=== PATIENT | male | born 1945 | race Caucasian/White ===

== ENCOUNTER → 2017-06-13 | Outpatient (CLI) | payer MEDICARE, OTHER ==
[~2017-06-13] MED LIST: "\\\"ANTIBIOTIC\\\"" PO; ASPIRIN325 MG PO; ASPRIN/BUTALBIT1 TAB; CIPROFLOXACIN500 MG PO; DIABETA5 MG PO; DILTIAZEM120 MG PO; ENALAPRIL10 MG PO; LASIX20 MG PO; LIQUID MAGNESI400 MG PO; LOPRESSOR50 MG PO; MAG-OX 400400 MG PO; METFORMIN HCL1000 MG PO; PLAVIX75 MG PO; SIMVASTATIN20 MG PO; VICODIN 5/500 505 MG PO
== END | disposition home or self-care (01) ==
LOC: RAD 09:12
DX: R06.02 Shortness of breath (principal); E11.9 Type 2 diabetes mellitus without complications; I10 Essential (primary) hypertension; Z86.711 Personal history of pulmonary embolism

== ENCOUNTER 2017-08-31 19:31 | Emergency (ER) | payer MEDICARE, OTHER ==
[~2017-08-31] VITALS: Ht 182.8 cm; Wt 109.8 kg
[2017-08-31 19:38] VITALS: BP 146/99
[2017-08-31] MEDS ORDERED: MEDROL DOSEPAK4 MG PO (20:26)
== END 2017-08-31 20:50 | disposition home or self-care (01) ==
LOC: ED 19:31
DX: M54.12 Radiculopathy, cervical region (principal)

== ENCOUNTER → 2017-11-23 | Outpatient (CLI) | payer MEDICARE, OTHER ==
[~2017-11-23] MED LIST changes: +MEDROL DOSEPAK4 MG PO
== END ==
LOC: CARD 10:11 → LAB 10:11
DX: M25.511 Pain in right shoulder (principal); I10 Essential (primary) hypertension; R94.31 Abnormal electrocardiogram [ECG] [EKG]

== ENCOUNTER → 2019-02-28 | Outpatient (CLI) | payer MEDICARE ==
[~2019-02-28] MED LIST changes: +GLUCOTROL5 MG PO; +PRECOSE100 MG PO; +XARE20MG PO
--- NOTE | ~2019-02-28 | ST ---
[place], [place] EXERCISE STRESS TEST REPORT NAME[id number] UNIT #: [id number] ROOM: DOCTOR: EZIO PRASAD MD BIRTHDATE: [birth year] DOS: 02/28/2019 EXERCISE CARDIOLITE STRESS TEST REASON FOR TESTING: Exertional dyspnea. FINDINGS: Baseline EKG, atrial fibrillation with a controlled rate. Abnormal EKG. PROCEDURE: After informed consent, the patient walked for 3 minutes 40 seconds on a full Olivier protocol stress test and stopped for dyspnea. He achieved a maximum heart rate of 157, which is equivalent to 107% of maximum predicted heart rate at a workload of 5 METs. There were no EKG changes on the exercise EKG. The patient experienced dyspnea and no chest pain. [place] treadmill score was 4 consistent with intermediate risk of cardiovascular events. Isotope was injected 1 minute prior to completion of exercise. Please see the separate imaging report for further details of the stress test results. Ezio Prasad MD CM:STRESS:EXERCISE STRESS TEST REPORT [id number] EZIO PRASAD MD
--- NOTE | 2019-02-28 10:00 | NUR ---
INFORMED CONSENT OBTAINED FOR EXERCISE CARDIOLITE STRESS TEST WITH DR. PRASAD. RESTING EKG A-FIB WITH A SUPINE HR OF 89 WITH BP OF 104/82 AND HR OF 96 WITH BP OF 110/78 IN STANDING POSITION. PRE EXERCISE SP02 OF 100%. PT COMPLETED 3:42 OF A ILIR PROTOCOL WITH COMPLETION OF 42 SECONDS OF STAGE II AT 2.5 MPH AND 12% GRADE. REACHED A PEAK HR OF 157 WHICH IS 107% OF PREDICTED MAX AND A PEAK BP OF 150/78. HAD NO CHEST PAIN OR ANY ST CHANGES. REMAINED IN A-FIB AND HAD AN EXERCISE SPO2 OF 94%. TEST TERMINATED BECAUSE OF FATIGUE AND SHORTNESS OF BREATH. HAS A FAIR EXERCISE TOLERANCE. LAST RECOVERY HR OF 102 WITH BP OF 124/78. TO NUCLEAR MEDICINE IN STABLE CONDITION FOR SCANNING.
== END | disposition home or self-care (01) ==
LOC: CARD 01:24
DX: R06.02 Shortness of breath (principal); I48.91 Unspecified atrial fibrillation; R94.31 Abnormal electrocardiogram [ECG] [EKG]

== ENCOUNTER → 2021-03-03 | Outpatient (CLI) | payer MEDICARE, OTHER ==
[~2021-03-03] MED LIST changes: +TOUJEO SOL300 UNIT/1 SQ; +TRULICITY1.5 MG/0.5 SC; +ZOCOR40 MG PO
== END | disposition home or self-care (01) ==
LOC: CARD 00:15
PROVIDERS: ATTEND Internal Medicine Cardiovascular Disease
DX: I48.91 Unspecified atrial fibrillation (principal)

== ENCOUNTER 2021-04-27 10:57 | Emergency (ER) | payer MEDICARE, OTHER ==
[~2021-04-27] VITALS: Ht 182.8 cm; Wt 117.9 kg
[2021-04-27 11:18] VITALS: BP 142/88
[2021-04-27 11:53] LABS: BASO % 0.2 % (0.0-1.0); EOS # 0.1 10*3/uL (0.0-0.4); EOS % 0.9 % (1.0-4.0); HEMATOCRIT 50.9 % (42.0-52.0); LYMPH # 1.4 10*3/uL (1.3-4.4); LYMPH % 14.2 % (27.0-41.0); MEAN CELL VOLUME 88.1 fl (80.0-94.0); MEAN CORPUSCULAR HGB 29.1 pg (27.0-31.0); MEAN PLATELET VOLUME 9.5 fl (9.6-12.3); MONO # 0.7 10*3/uL (0.1-1.0); MONO % 7.1 % (3.0-9.0); NEUT # 7.5 10*3/uL (2.3-7.9); NEUT % 77.2 % (47.0-73.0); PLATELET COUNT AUTOMATED 147 10*3/uL (130-400); RED BLOOD COUNT 5.78 10*6/uL (4.50-5.90); WHITE BLOOD COUNT 9.7 10*3/uL (4.8-10.8)
[2021-04-27 12:07] LABS: ALBUMIN 3.1 gm/dl (3.1-4.5); CREATININE 1.5 mg/dL (0.70-1.30); TOTAL PROTEIN 6.8 gm/dL (6.4-8.2)
[2021-04-27 12:08] LABS: URIC ACID 5.6 mg/dL (3.5-7.2)
[2021-04-27] MEDS ORDERED: CEPHALEXIN500 M1 PO (12:43)
[2021-04-27] MEDS ORDERED: SEPTDS PO (12:43)
== END 2021-04-27 13:09 | disposition home or self-care (01) ==
LOC: ED 10:57
PROVIDERS: Physician Assistant
DX: S91.105A Unspecified open wound of left lesser toe(s) without damage to nail, initial encounter (principal); Z79.899 Other long term (current) drug therapy; Z98.890 Other specified postprocedural states; X58.XXXA Exposure to other specified factors, initial encounter; Y93.89 Activity, other specified; Y92.89 Other specified places as the place of occurrence of the external cause; Y99.8 Other external cause status

== ENCOUNTER → 2021-05-18 | Outpatient (CLI) | payer MEDICARE, OTHER ==
[~2021-05-18] MED LIST changes: +CEPHALEXIN500 M1 PO; +SEPTDS PO
== END ==
LOC: WOUNDCARE 09:53
PROVIDERS: ATTEND Nurse Practitioner
DX: E11.621 Type 2 diabetes mellitus with foot ulcer (principal); L97.522 Non-pressure chronic ulcer of other part of left foot with fat layer exposed; I10 Essential (primary) hypertension; I48.91 Unspecified atrial fibrillation; I25.10 Atherosclerotic heart disease of native coronary artery without angina pectoris; Z98.890 Other specified postprocedural states; Z87.442 Personal history of urinary calculi; Z79.899 Other long term (current) drug therapy; Z79.4 Long term (current) use of insulin

== ENCOUNTER → 2021-05-25 | Outpatient (CLI) | payer MEDICARE, OTHER | LOC: WOUNDCARE 01:11 | PROVIDERS: ATTEND Nurse Practitioner | DX: E11.621 Type 2 diabetes mellitus with foot ulcer (principal); L97.522 Non-pressure chronic ulcer of other part of left foot with fat layer exposed; I10 Essential (primary) hypertension; I25.10 Atherosclerotic heart disease of native coronary artery without angina pectoris; I48.91 Unspecified atrial fibrillation; Z87.442 Personal history of urinary calculi ==

== ENCOUNTER → 2021-06-08 | Outpatient (CLI) | payer MEDICARE, OTHER | LOC: WOUNDCARE 01:27 | PROVIDERS: ATTEND Nurse Practitioner | DX: E11.621 Type 2 diabetes mellitus with foot ulcer (principal); L97.528 Non-pressure chronic ulcer of other part of left foot with other specified severity; I10 Essential (primary) hypertension; I25.10 Atherosclerotic heart disease of native coronary artery without angina pectoris; I48.91 Unspecified atrial fibrillation; Z87.442 Personal history of urinary calculi ==

== ENCOUNTER 2022-07-10 01:11 | Emergency (ER) | payer OTHER ==
[~2022-07-10] VITALS: Ht 180.3 cm; Wt 127.1 kg
[2022-07-10 01:37] LABS: BASO % 0.2 % (0.0-1.0); EOS # 0.2 10*3/uL (0.0-0.4); EOS % 2.3 % (1.0-4.0); HEMATOCRIT 53.3 % (42.0-52.0); LYMPH # 1.9 10*3/uL (1.3-4.4); LYMPH % 22.2 % (27.0-41.0); MEAN CELL VOLUME 91.6 fl (80.0-94.0); MEAN CORPUSCULAR HGB 29.2 pg (27.0-31.0); MEAN CORPUSCULAR HGB CONC 31.9 g/dl (33.0-37.0); MONO # 0.9 10*3/uL (0.1-1.0); MONO % 10.4 % (3.0-9.0); NEUT # 5.4 10*3/uL (2.3-7.9); NEUT % 64.7 % (47.0-73.0); PLATELET COUNT AUTOMATED 165 10*3/uL (130-400); RED BLOOD COUNT 5.82 10*6/uL (4.50-5.90); WHITE BLOOD COUNT 8.4 10*3/uL (4.8-10.8)
[2022-07-10 01:52] LABS: INTERNATIONAL NORM RATIO 1.1 (2.0-3.5)
[2022-07-10 01:53] LABS: CREATININE 1.53 mg/dL (0.70-1.30); POTASSIUM 4.8 mmol/L (3.5-5.1); TOTAL PROTEIN 7.2 gm/dL (6.4-8.2)
[2022-07-10 03:15] VITALS: BP 117/82
== END 2022-07-10 03:55 | disposition left against medical advice (07) ==
LOC: ED 01:11
PROVIDERS: Emergency Medicine
DX: R07.9 Chest pain, unspecified (principal); Z79.899 Other long term (current) drug therapy; Z90.49 Acquired absence of other specified parts of digestive tract

== ENCOUNTER 2022-11-25 14:40 | Emergency (ER) | payer MEDICARE ==
[~2022-11-25] VITALS: Wt 120.2 kg
[2022-11-25 14:41] VITALS: BP 144/94
[2022-11-25 15:34] LABS: INTERNATIONAL NORM RATIO 1.4 (2.0-3.5)
[2022-11-25 15:40] LABS: POTASSIUM 4.1 mmol/L (3.4-5.1); TOTAL PROTEIN 6.3 gm/dL (6.0-8.0)
[2022-11-25 16:16] LABS: BASO % 0.2 % (0.0-1.0); EOS # 0.1 10*3/uL (0.0-0.4); EOS % 1.6 % (1.0-4.0); LYMPH # 1.4 10*3/uL (1.3-4.4); LYMPH % 17.4 % (27.0-41.0); MEAN CELL VOLUME 90.9 fl (80.0-94.0); MEAN CORPUSCULAR HGB 29.6 pg (27.0-31.0); MEAN CORPUSCULAR HGB CONC 32.6 g/dl (33.0-37.0); MEAN PLATELET VOLUME 10.6 fl (9.6-12.3); MONO # 0.5 10*3/uL (0.1-1.0); MONO % 6.6 % (3.0-9.0); NEUT # 5.9 10*3/uL (2.3-7.9); NEUT % 73.8 % (47.0-73.0); PLATELET COUNT AUTOMATED 121 10*3/uL (130-400); RED BLOOD COUNT 5.94 10*6/uL (4.50-5.90); RED CELL DISTRI WIDTH 13.9 % (0-14.5)
== END 2022-11-25 17:56 | disposition home or self-care (01) ==
LOC: ED 14:40
PROVIDERS: Emergency Medicine
DX: M25.512 Pain in left shoulder (principal); Z79.899 Other long term (current) drug therapy; Z90.49 Acquired absence of other specified parts of digestive tract; W18.39XA Other fall on same level, initial encounter; Y93.89 Activity, other specified; Y92.89 Other specified places as the place of occurrence of the external cause; Y99.8 Other external cause status

== ENCOUNTER 2024-07-20 19:20 | Emergency (ER) | payer MEDICARE ==
[~2024-07-20] VITALS: Ht 180.3 cm; Wt 117.9 kg
[2024-07-20 19:20] VITALS: BP 112/72
[2024-07-20] MEDS ORDERED: Acetaminophen/Hydrocodone 5 MG/325 MG TABLET PO ONE (19:55)
[2024-07-20] MEDS ORDERED: CYCLOBENZAPRINE10 MG PO (21:21)
== END 2024-07-20 21:32 | disposition home or self-care (01) ==
LOC: ED 19:20
DX: S83.92XA Sprain of unspecified site of left knee, initial encounter (principal); I48.91 Unspecified atrial fibrillation; I10 Essential (primary) hypertension; E11.9 Type 2 diabetes mellitus without complications; E78.00 Pure hypercholesterolemia, unspecified; Z87.442 Personal history of urinary calculi; Z90.49 Acquired absence of other specified parts of digestive tract; Z98.890 Other specified postprocedural states; W01.0XXA Fall on same level from slipping, tripping and stumbling without subsequent striking against object, initial encounter; Y93.E1 Activity, personal bathing and showering; Y92.89 Other specified places as the place of occurrence of the external cause; Y99.8 Other external cause status

== ENCOUNTER → 2024-08-09 | Outpatient (CLI) | payer MEDICARE ==
[~2024-08-09] MED LIST changes: +CYCLOBENZAPRINE10 MG PO
== END | disposition home or self-care (01) ==
LOC: MRI 02:17
PROVIDERS: ATTEND Orthopaedic Surgery
DX: S83.242A Other tear of medial meniscus, current injury, left knee, initial encounter (principal); S83.282A Other tear of lateral meniscus, current injury, left knee, initial encounter; M25.462 Effusion, left knee; M79.89 Other specified soft tissue disorders; M70.52 Other bursitis of knee, left knee; X58.XXXA Exposure to other specified factors, initial encounter; Y93.89 Activity, other specified; Y92.89 Other specified places as the place of occurrence of the external cause; Y99.8 Other external cause status

== ENCOUNTER → 2024-09-04 | Day surgery (SDC) | payer MEDICARE ==
[2024-08-30 09:30] LABS: BASO % 0.4 % (0.0-1.0); EOS # 0.2 10*3/uL (0.0-0.4); EOS % 3.1 % (1.0-4.0); HEMATOCRIT 52.2 % (42.0-52.0); LYMPH # 1.8 10*3/uL (1.3-4.4); LYMPH % 25.7 % (27.0-41.0); MEAN CELL VOLUME 93.4 fl (80.0-94.0); MEAN CORPUSCULAR HGB 29.7 pg (27.0-31.0); MEAN CORPUSCULAR HGB CONC 31.8 g/dl (33.0-37.0); MEAN PLATELET VOLUME 9.9 fl (9.6-12.3); MONO # 0.7 10*3/uL (0.1-1.0); MONO % 9.4 % (3.0-9.0); NEUT # 4.3 10*3/uL (2.3-7.9); NEUT % 61.3 % (47.0-73.0); PLATELET COUNT AUTOMATED 141 10*3/uL (130-400); RED BLOOD COUNT 5.59 10*6/uL (4.50-5.90); RED CELL DISTRI WIDTH 12.8 % (0-14.5); WHITE BLOOD COUNT 7.1 10*3/uL (4.8-10.8)
[2024-08-30 09:51] LABS: POTASSIUM 4.3 mmol/L (3.4-5.1)
[2024-08-30 09:52] LABS: ACT PARTIAL THROMBO TIME 28.9 SECONDS (20.0-32.1)
[~2024-09-04] VITALS: Ht 182.8 cm; Wt 117.9 kg
== END | disposition home or self-care (01) ==
LOC: SDC 08-31 10:15
PROVIDERS: ATTEND Orthopaedic Surgery
DX: M17.12 Unilateral primary osteoarthritis, left knee (principal); Z53.8 Procedure and treatment not carried out for other reasons; I10 Essential (primary) hypertension; E11.9 Type 2 diabetes mellitus without complications; I48.91 Unspecified atrial fibrillation; E78.00 Pure hypercholesterolemia, unspecified; G47.30 Sleep apnea, unspecified; K92.1 Melena; Z87.442 Personal history of urinary calculi; Z83.3 Family history of diabetes mellitus; Z82.49 Family history of ischemic heart disease and other diseases of the circulatory system

== ENCOUNTER → 2025-06-14 | Outpatient (CLI) | payer OTHER ==
[~2025-06-14] MED LIST changes: +DILTIAZEM 24HR180 MG PO; +FARXIGA10 M1 PO; +HYDROCODONE-AC1 EAC1 PO; +ROSUVASTATIN CA20 MG PO
== END | disposition home or self-care (01) ==
LOC: CT 13:56
PROVIDERS: ATTEND Urology
DX: N13.30 Unspecified hydronephrosis (principal); N40.0 Benign prostatic hyperplasia without lower urinary tract symptoms; R31.9 Hematuria, unspecified

== ENCOUNTER 2025-06-19 23:19 | Inpatient (IN) | payer OTHER ==
[~2025-06-19] VITALS: Ht 182.9 cm; Wt 114.3 kg
[~2025-06-19 23:19] MED LIST changes: -DILTIAZEM 24HR180 MG PO; -FARXIGA10 M1 PO; -HYDROCODONE-AC1 EAC1 PO; -ROSUVASTATIN CA20 MG PO
[2025-06-20] VITALS (8 sets, daily range): BP systolic 98–136; BP diastolic 51–82
[2025-06-20 01:02] LABS: BASO # 0.0 10*3/uL (0.0-0.1); BASO % 0.2 % (0.0-1.0); EOS # 0.2 10*3/uL (0.0-0.4); EOS % 1.6 % (1.0-4.0); MEAN CELL VOLUME 89.7 fl (80.0-94.0); MEAN CORPUSCULAR HGB 29.1 pg (27.0-31.0); MEAN PLATELET VOLUME 10.2 fl (9.6-12.3); MONO # 1.1 10*3/uL (0.1-1.0); MONO % 9.1 % (3.0-9.0); NEUT # 9.7 10*3/uL (2.3-7.9); NEUT % 77.1 % (47.0-73.0); NUCLEATED RED BLOOD CELL 0.0 % (0.0-0.0); NUCLEATED RED BLOOD CELL 0.0 10*3/uL (0.0-0.0); PLATELET COUNT AUTOMATED 125 10*3/uL (130-400); RED CELL DISTRI WIDTH 13.1 % (0-14.5)
[2025-06-20 01:26] LABS: BUN 33.0 mg/dl (9-23); SGPT/ALT 16.0 U/L (5-49)
[2025-06-20] MEDS ORDERED: SODIUM CHLORIDE 0.9% 1,000 ML IV ONE ×2 (02:50→17:20)
[2025-06-20] MEDS ORDERED: INSULIN REGULAR, HUMAN 1 UNIT/0.01 ML IV ONE (03:00)
[2025-06-20 03:44] LABS: BILIRUBIN Negative (Negative); BLOOD 2+ (Negative); CLARITY Turbid (Clear); COLOR Yellow (Yellow); KETONE Negative (Negative); LEUKO ESTERASE Trace (Negative); NITRITE Negative (Negative); PH 6.0 (4.5-8.0); SPECIFIC GRAVITY 1.015 (1.001-1.030); UROBILINOGEN 0.2 E.U./dl (0.0-1.0)
[2025-06-20 03:49] LABS: EPITHELIAL CELLS 41-50
[2025-06-20 03:50] LABS: YEAST 1+
[2025-06-20 03:51] LABS: BACTERIA 2+; RBC 16-20 rbc/hpf (0-2); WBC 16-20 wbc/hpf (0-5)
[2025-06-20] MEDS ORDERED: ACETAMINOPHEN 325 MG TAB PO PRN (05:40)
[2025-06-20] MEDS ORDERED: TEMAZEPAM 15 MG CAP PO PRN (05:40)
[2025-06-20] MEDS ORDERED: ACETAMINOPHEN 650 MG SUPP R PRN (05:40)
[2025-06-20] MEDS ORDERED: BISACODYL 10 MG SUPP R PRN (05:40)
[2025-06-20] MEDS ORDERED: BISACODYL 5 MG TAB PO PRN (05:40)
[2025-06-20] MEDS ORDERED: Acetaminophen/Hydrocodone 5 MG/325 MG TABLET PO PRN (05:40)
[2025-06-20] MEDS ORDERED: Ondansetron Hydrochloride 4 MG/2 ML VIAL IV PRN (05:40)
[2025-06-20] MEDS ORDERED: SODIUM CHLORIDE 0.9% 1,000 ML IV SCH (05:50)
[2025-06-20] MEDS ORDERED: DEXTROSE 50% 25 GM/50 ML VIAL IV PRN (05:50)
[2025-06-20] MEDS ORDERED: ROSUVASTATIN CA20 MG PO (05:54)
[2025-06-20] MEDS ORDERED: INSULIN LISPRO 1 UNIT/0.01 ML SQ SCH (07:30)
[2025-06-20] MEDS ORDERED: RIVAROXABAN 15 MG TAB PO SCH (10:00)
[2025-06-20 19:58] LABS: BASO # 0.0 10*3/uL (0.0-0.1); BASO % 0.2 % (0.0-1.0); EOS # 0.2 10*3/uL (0.0-0.4); EOS % 1.4 % (1.0-4.0); MEAN CELL VOLUME 91.0 fl (80.0-94.0); MEAN CORPUSCULAR HGB 29.4 pg (27.0-31.0); MEAN PLATELET VOLUME 10.3 fl (9.6-12.3); MONO # 1.1 10*3/uL (0.1-1.0); MONO % 8.5 % (3.0-9.0); NEUT # 10.2 10*3/uL (2.3-7.9); NEUT % 77.4 % (47.0-73.0); NUCLEATED RED BLOOD CELL 0.0 % (0.0-0.0); NUCLEATED RED BLOOD CELL 0.0 10*3/uL (0.0-0.0); PLATELET COUNT AUTOMATED 130 10*3/uL (130-400); RED CELL DISTRI WIDTH 13.2 % (0-14.5)
[2025-06-20 20:10] LABS: BUN 31.0 mg/dl (9-23)
[2025-06-21] VITALS: BP 94/61
[2025-06-21 06:30] VITALS: BP 108/78
[2025-06-21 06:35] LABS: BASO # 0.0 10*3/uL (0.0-0.1); BASO % 0.1 % (0.0-1.0); EOS # 0.2 10*3/uL (0.0-0.4); EOS % 1.6 % (1.0-4.0); MEAN CELL VOLUME 92.0 fl (80.0-94.0); MEAN CORPUSCULAR HGB 28.8 pg (27.0-31.0); MEAN PLATELET VOLUME 10.4 fl (9.6-12.3); MONO # 1.1 10*3/uL (0.1-1.0); MONO % 8.3 % (3.0-9.0); NEUT # 10.5 10*3/uL (2.3-7.9); NEUT % 77.8 % (47.0-73.0); NUCLEATED RED BLOOD CELL 0.0 % (0.0-0.0); NUCLEATED RED BLOOD CELL 0.0 10*3/uL (0.0-0.0); PLATELET COUNT AUTOMATED 146 10*3/uL (130-400); RED CELL DISTRI WIDTH 13.2 % (0-14.5)
[2025-06-21 07:01] LABS: BUN 31.0 mg/dl (9-23); SGPT/ALT 11.0 U/L (5-49)
[2025-06-21 07:38] LABS: LDL CHOLESTEROL 78.0 mg/dL (9-159)
[2025-06-21 08:00] VITALS: BP 103/58
[2025-06-21] MEDS ORDERED: SODIUM CHLORIDE 0.9% 1,000 ML IV ONE (08:20)
[2025-06-21] MEDS ORDERED: SODIUM POLYSTYRENE SULFONATE 15 GM/60 ML BOT PO ONE (08:20)
[2025-06-21] MEDS ORDERED: LISINOPRIL 20 MG TAB PO SCH (10:00)
[2025-06-21] MEDS ORDERED: ATORVASTATIN CALCIUM 20 MG TAB PO SCH (10:00)
[2025-06-21 12:00] VITALS: BP 109/90
[2025-06-21 16:00] VITALS: BP 128/74
[2025-06-21] MEDS ORDERED: Lidocaine Hydrochloride 3% 30 GM CREAM T SCH ×2 (16:00→18:00)
[2025-06-21 20:00] VITALS: BP 99/57
[2025-06-21 20:18] LABS: BUN 32.0 mg/dl (9-23)
[2025-06-22] VITALS: BP 103/67
[2025-06-22 05:19] LABS: BUN 27.0 mg/dl (9-23)
[2025-06-22 06:03] LABS: BASO # 0.0 10*3/uL (0.0-0.1); BASO % 0.2 % (0.0-1.0); EOS # 0.3 10*3/uL (0.0-0.4); EOS % 2.2 % (1.0-4.0); MEAN CELL VOLUME 89.8 fl (80.0-94.0); MEAN CORPUSCULAR HGB 29.2 pg (27.0-31.0); MEAN PLATELET VOLUME 9.6 fl (9.6-12.3); MONO # 1.2 10*3/uL (0.1-1.0); MONO % 9.3 % (3.0-9.0); NEUT # 9.5 10*3/uL (2.3-7.9); NEUT % 75.8 % (47.0-73.0); NUCLEATED RED BLOOD CELL 0.0 % (0.0-0.0); NUCLEATED RED BLOOD CELL 0.0 10*3/uL (0.0-0.0); PLATELET COUNT AUTOMATED 155 10*3/uL (130-400); RED CELL DISTRI WIDTH 13.2 % (0-14.5)
[2025-06-22 08:00] VITALS: BP 104/70
[2025-06-22 10:00] VITALS: BP 102/62
[2025-06-22 12:00] VITALS: BP 123/76
[2025-06-22 16:00] VITALS: BP 102/46
[2025-06-22 20:00] VITALS: BP 106/57
[2025-06-23] VITALS: BP 106/57
[2025-06-23 05:25] LABS: BUN 25.0 mg/dl (9-23)
[2025-06-23 06:10] LABS: BASO # 0.0 10*3/uL (0.0-0.1); BASO % 0.3 % (0.0-1.0); EOS # 0.4 10*3/uL (0.0-0.4); EOS % 2.9 % (1.0-4.0); MEAN CELL VOLUME 90.6 fl (80.0-94.0); MEAN CORPUSCULAR HGB 29.3 pg (27.0-31.0); MEAN PLATELET VOLUME 9.8 fl (9.6-12.3); MONO # 1.2 10*3/uL (0.1-1.0); MONO % 9.7 % (3.0-9.0); NEUT # 8.6 10*3/uL (2.3-7.9); NEUT % 72.3 % (47.0-73.0); NUCLEATED RED BLOOD CELL 0.0 % (0.0-0.0); NUCLEATED RED BLOOD CELL 0.0 10*3/uL (0.0-0.0); PLATELET COUNT AUTOMATED 166 10*3/uL (130-400); RED CELL DISTRI WIDTH 13.2 % (0-14.5)
[2025-06-23 08:00] VITALS: BP 135/73
[2025-06-23] MEDS ORDERED: Lidocaine Hydrochloride 3% 30 GM CREAM T PRN (11:25)
[2025-06-23 12:00] VITALS: BP 108/49
[2025-06-23 16:00] VITALS: BP 114/59
[2025-06-23 20:00] VITALS: BP 117/61
[2025-06-24] VITALS: BP 100/66
[2025-06-24] MEDS ORDERED: FARXIGA10 M1 PO (00:43)
[2025-06-24 06:16] LABS: BASO # 0.0 10*3/uL (0.0-0.1); BASO % 0.2 % (0.0-1.0); EOS # 0.3 10*3/uL (0.0-0.4); EOS % 3.4 % (1.0-4.0); MEAN CELL VOLUME 92.0 fl (80.0-94.0); MEAN CORPUSCULAR HGB 29.0 pg (27.0-31.0); MEAN PLATELET VOLUME 9.5 fl (9.6-12.3); MONO # 0.7 10*3/uL (0.1-1.0); MONO % 7.8 % (3.0-9.0); NEUT # 6.8 10*3/uL (2.3-7.9); NEUT % 72.1 % (47.0-73.0); NUCLEATED RED BLOOD CELL 0.0 % (0.0-0.0); NUCLEATED RED BLOOD CELL 0.0 10*3/uL (0.0-0.0); PLATELET COUNT AUTOMATED 183 10*3/uL (130-400); RED CELL DISTRI WIDTH 13.2 % (0-14.5)
[2025-06-24 06:20] LABS: BUN 19.0 mg/dl (9-23)
[2025-06-24] MEDS ORDERED: Insulin Glargine, Recombinan 1 UNIT/0.01 ML SC SCH ×2 (07:30)
[2025-06-24 08:00] VITALS: BP 95/68
[2025-06-24 12:00] VITALS: BP 105/64
[2025-06-24 16:00] VITALS: BP 140/77
[2025-06-24 20:00] VITALS: BP 130/69
[2025-06-25] VITALS: BP 121/72; BP 130/69
[2025-06-25 06:01] LABS: BASO # 0.0 10*3/uL (0.0-0.1); BASO % 0.2 % (0.0-1.0); EOS # 0.4 10*3/uL (0.0-0.4); EOS % 4.2 % (1.0-4.0); MEAN CELL VOLUME 91.2 fl (80.0-94.0); MEAN CORPUSCULAR HGB 29.4 pg (27.0-31.0); MEAN PLATELET VOLUME 9.4 fl (9.6-12.3); MONO # 0.7 10*3/uL (0.1-1.0); MONO % 8.5 % (3.0-9.0); NEUT # 5.5 10*3/uL (2.3-7.9); NEUT % 66.6 % (47.0-73.0); NUCLEATED RED BLOOD CELL 0.0 % (0.0-0.0); NUCLEATED RED BLOOD CELL 0.0 10*3/uL (0.0-0.0); PLATELET COUNT AUTOMATED 224 10*3/uL (130-400); RED CELL DISTRI WIDTH 13.4 % (0-14.5)
[2025-06-25 06:48] LABS: BUN 18 mg/dl (9-23)
[2025-06-25 08:00] VITALS: BP 110/66
[2025-06-25 09:58] VITALS: BP 117/69
[2025-06-25 12:00] VITALS: BP 116/79
[2025-06-25] MEDS ORDERED: DILTIAZEM 24HR180 MG PO (13:36)
[2025-06-25] MEDS ORDERED: TOUJEO SOL300 UNIT/1 SQ (13:36)
[2025-06-25] MEDS ORDERED: HYDROCODONE-AC1 EAC1 PO (13:36)
== END 2025-06-25 18:08 | disposition home or self-care (01) | DRG 871 ==
LOC: ED 23:19 → EDHOLD 06-20 05:36 → 4E 06-20 05:36 → EDHOLD 06-20 06:55 → 4E 06-20 07:42
PROVIDERS: Emergency Medicine; Family Medicine; ADMIT Internal Medicine; ATTEND Internal Medicine
PROC: 5A09357 Assistance with Respiratory Ventilation, Less than 24 Consecutive Hours, Continuous Positive Airway Pressure (ICD-10-PCS; principal; 2025-06-22)
PROC: 5A09357 Assistance with Respiratory Ventilation, Less than 24 Consecutive Hours, Continuous Positive Airway Pressure (ICD-10-PCS; 2025-06-23)
PROC: 5A09357 Assistance with Respiratory Ventilation, Less than 24 Consecutive Hours, Continuous Positive Airway Pressure (ICD-10-PCS; 2025-06-24)
PROC: 5A09357 Assistance with Respiratory Ventilation, Less than 24 Consecutive Hours, Continuous Positive Airway Pressure (ICD-10-PCS; 2025-06-25)
DX: A41.9 Sepsis, unspecified organism (principal); E43 Unspecified severe protein-calorie malnutrition; N17.0 Acute kidney failure with tubular necrosis; E87.1 Hypo-osmolality and hyponatremia; E11.65 Type 2 diabetes mellitus with hyperglycemia; E78.5 Hyperlipidemia, unspecified; I10 Essential (primary) hypertension; G47.33 Obstructive sleep apnea (adult) (pediatric); R65.20 Severe sepsis without septic shock; D69.6 Thrombocytopenia, unspecified; N40.1 Benign prostatic hyperplasia with lower urinary tract symptoms; R33.8 Other retention of urine; E87.5 Hyperkalemia; N30.91 Cystitis, unspecified with hematuria; N31.9 Neuromuscular dysfunction of bladder, unspecified; I48.91 Unspecified atrial fibrillation; Z79.4 Long term (current) use of insulin; Z79.899 Other long term (current) drug therapy; Z79.01 Long term (current) use of anticoagulants; Z79.2 Long term (current) use of antibiotics; Z90.49 Acquired absence of other specified parts of digestive tract; Z83.3 Family history of diabetes mellitus; Z82.49 Family history of ischemic heart disease and other diseases of the circulatory system; Z68.34 Body mass index [BMI] 34.0-34.9, adult